=== PATIENT | female | born 1995 | race Caucasian/White ===

== ENCOUNTER 2017-07-29 13:20 | Emergency (ER) | payer OTHER ==
[2017-07-29 14:13] VITALS: BP 133/88; PULSE 77; TEMP 98.8; BMI 28.3
--- NOTE | 2017-07-29 14:31 | PDOC ---
History of Present Illness <Missy Amezcua - Last Filed: 07/29/17 16:35> - History of Present Illness Initial Comments: 07/30/17 00:21 The patient is a 22 year old female with no pertinent past medical history who arrives to the ED via EMS after slipping on ice at noon today. The patient states she was walking outside her house when she slipped and fell, and in the process twisted her left foot. The patient reports hearing a crack and immediately feeling pain. She reports dfficulty in weight bearing and ambulation with her left foot. She denies pain to any other area, numbness or tingling. She denies any head trauma or LOC, denies other injuries. Denies fevers or chills. Pt activated EMS after she was unable to walk. Allergies: NKDA Surgeries: None Social: Denies any tobacco, alcohol, or drug use. <Rudolph Prasadakila - Last Filed: 07/30/17 00:23> - General Chief Complaint: Injury Stated Complaint: LEFT FOOT INJURY Time Seen by Provider: 07/29/17 14:31 Past History <Missy Amezcua - Last Filed: 07/29/17 16:35> - Past Medical History COPD: No Other medical history: PT DENIES - Suicide/Smoking/Psychosocial Hx Smoking History: Never smoked Hx Alcohol Use: No Drug/Substance Use Hx: No Substance Use Type: None <Rudolph Prasadjose enriquebrooke - Last Filed: 07/30/17 00:23> - Past Medical History Allergies/Adverse Reactions: Allergies Allergy/AdvReac Type Severity Reaction Status Date / Time No Known Allergies Allergy Verified 07/29/17 14:09 Home Medications: Ambulatory Orders NK [No Known Home Medication] 07/29/17 Review of Systems - Review of Systems Comments:: 07/30/17 00:21 GENERAL/CONSTITUTIONAL: No fever or chills. No weakness. HEAD, EYES, EARS, NOSE AND THROAT: No change in vision. No ear pain or discharge. No sore throat. GASTROINTESTINAL: No nausea, vomiting, diarrhea or constipation. GENITOURINARY: No dysuria, frequency, or change in urination. CARDIOVASCULAR: No chest pain or shortness of breath. RESPIRATORY: No cough, wheezing, or hemoptysis. MUSCULOSKELETAL: Left foot pain. No neck or back pain. SKIN: No rash NEUROLOGIC: No headache, vertigo, loss of consciousness, or change in strength/ sensation. ENDOCRINE: No increased thirst. No abnormal weight change. HEMATOLOGIC/LYMPHATIC: No anemia, easy bleeding, or history of blood clots. ALLERGIC/IMMUNOLOGIC: No hives or skin allergy. <Stevan Prasada - Last Filed: 07/30/17 00:23> *Physical Exam - Vital Signs Last Vital Signs Temp Pulse Resp BP Pulse Ox 98.8 F 77 18 133/88 100 07/29/17 14:09 07/29/17 14:09 07/29/17 14:09 07/29/17 14:09 07/29/17 14:09 <Missy Amezcua - Last Filed: 07/29/17 16:35> - Vital Signs Last Vital Signs Temp Pulse Resp BP Pulse Ox 98.8 F 77 18 133/88 100 07/29/17 14:09 07/29/17 14:09 07/29/17 14:07/29/17 14:09 07/29/17 14:09 - Physical Exam Comments: 07/30/17 00:22 GENERAL: Awake, alert, and fully oriented, in no acute distress HEAD: No signs of trauma EYES: PERRLA, EOMI, sclera anicteric, conjunctiva clear ENT: Auricles normal inspection, hearing grossly normal, nares patent, oropharynx clear without exudates. Moist mucosa NECK: Normal ROM, supple, no lymphadenopathy, JVD, or masses LUNGS: Breath sounds equal, clear to auscultation bilaterally. No wheezes, and no crackles HEART: Regular rate and rhythm, normal S1 and S2, no murmurs, rubs or gallops ABDOMEN: Soft, nontender, normoactive bowel sounds. No guarding, no rebound. No masses EXTREMITIES: Distal tibia with mild edema and ttp. full strength dorsi and plantar flexion. Normal range of motion. No clubbing or cyanosis. No cords, erythema. 2+ DP pulses b/l BACK: no midline spinal ttp NEUROLOGICAL: Normal speech, cranial nerves intact, negative pronator drift, 5/ 5 strength in all 4 extremities, normal sensation to light touch in all 4 extremities, normal cerebellar exam, normal gait, normal reflexes and tone SKIN: Warm, Dry, normal turgor, no rashes or lesions noted. <Nassef,Yomna - Last Filed: 07/30/17 00:23> ED Treatment Course - ADDITIONAL ORDERS Additional order review: Laboratory Results 07/29/17 14:37 Urine HCG, Qual Negative - RADIOLOGY Radiograph Interpretation: 07/29/17 16:36 Left foot x-ray as reviewed by Dr. Posey who reports minimal degenerative arthritis with no fracture or acute bone or joint abnormalities. - Medications Given in the ED: ED Medications Discontinued Medications Generic Name Dose Route Start Last Admin Trade Name Zhane PRN Reason Stop Dose Admin Acetaminophen 1,000 mg 07/29/17 14:37 07/29/17 14:56 Tylenol - PO 07/29/17 14:38 1,000 mg ONCE ONE Administration <Missy Amezcua - Last Filed: 07/29/17 16:35> Medical Decision Making - Medical Decision Making 07/29/17 18:19 X-ray negative for bony injury. Pain well controlled with Motrin. Patient given crutches for comfort and will be referred to orthopedics for follow-up. I discussed the physical exam findings, ancillary test results and final diagnoses with the patient. I answered all of the patient's questions. The patient was satisfied with the care received and felt comfortable with the discharge plan and treatment plan. The patient will call their primary care physician within 24 hours to arrange follow-up and will return to the Emergency Department with any new, persistent or worsening symptoms. <Alonso Prasad - Last Filed: 07/30/17 00:23> *DC/Admit/Observation/Transfer - Attestations Scribe Attestion: 07/29/17 16:36 Documentation prepared by Missy Amezcua, acting as medical officer for Alonso Prasad MD. <Missy Amezcua - Last Filed: 07/29/17 16:35> - Discharge Dispostion Admit: No - Attestations Physician Attestion: 07/29/17 18:22 I, Dr. Alonso Prasad MD, attest that this document has been prepared under my direction and personally reviewed by me in its entirety. I further attest, that it accurately reflects all work, treatment, procedures and medical decision -making performed by me. <Alonso Prasad - Last Filed: 07/30/17 00:23> Diagnosis at time of Disposition: Ankle injury - Discharge Dispostion Disposition: HOME Condition at time of disposition: Stable - Referrals Referrals: Alcides Andrew MD [Staff Physician] - - Patient Instructions Printed Discharge Instructions: DI for Ankle Pain Additional Instructions: Call Dr. Andrew's office for a follow-up appointment with orthopedics within one week. Take Motrin as needed for pain. Keep your foot elevated and use ice 2-3 times a day to reduce swelling. Return to the emergency department if you have any new, worsening or concerning symptoms.
[2017-07-29] MEDS ORDERED: ACETAMINOPHEN 500 MG TABLET (FP) PO ONE (14:37)
[2017-07-29] MEDS ORDERED: ACETAMINOPHEN 325 MG TABLET (FP) ONE (14:55)
== END 2017-07-29 18:43 | disposition home or self-care (01) ==
LOC: FER 13:20
DX: S99.912A Unspecified injury of left ankle, initial encounter (principal); W00.0XXA Fall on same level due to ice and snow, initial encounter; Y93.89 Activity, other specified; Y92.9 Unspecified place or not applicable
CPT/HCPCS: 73610-TC-LT-FY; 73630-TC-LT; 84703; 99281-25